=== PATIENT | male | born 1985 | race Caucasian/White ===

== ENCOUNTER 2020-12-07 15:39 | Emergency (ER) | payer MEDICAID, OTHER ==
[2020-12-07] MEDS ORDERED: Lidocaine 2% 20 ML MDV INFILT ONE (15:40)
[2020-12-07 16:34] VITALS: BP 139/89; PULSE 126
--- NOTE | 2020-12-07 17:08 | EDM.PDOC ---
ED HPI GENERAL MEDICAL PROBLEM - General Chief Complaint: Laceration Stated Complaint: L HAND LACERATION Time Seen by Provider: 12/07/20 16:00 Source of Information: Reports: Patient History Limitations: Reports: No Limitations - History of Present Illness INITIAL COMMENTS - FREE TEXT/NARRATIVE: Patient presented to the ED because of a left hand injury and doesn't know how he got hurt. He has a 0.5 cm laceration at the base of the left thumb. He is able to flex and exten his fingers without any difficulty. general Pain Score (Numeric/FACES): 8 - Related Data Allergies Allergy/AdvReac Type Severity Reaction Status Date / Time acetaminophen Allergy Hives Verified 04/06/13 19:49 Home Meds: Home Meds Cyclobenzaprine [Flexeril] 10 mg PO DAILY 04/06/13 [History] HYDROcodone/Ibuprofen [Vicoprofen 200-7.5 MG] 1 each PO Q4HR 04/06/13 [History] Neomycin/Bacitracin/Polymyxinb [Antibiotic Ointment] 3.5 gm TP Q4HR #1 oint...g. 04/06/13 [Rx] Past Medical History Respiratory History: Reports: Asthma, Bronchitis, Recurrent, Pneumonia, Recurrent Musculoskeletal History: Reports: Arthritis, Fracture Neurological History: Reports: Concussion Psychiatric History: Reports: Addiction, ADHD, Bipolar, Psych Hospitalization(s) Other Psychiatric History: out patient CD tx - Infectious Disease History Infectious Disease History: Reports: Chicken Pox - Past Surgical History Musculoskeletal Surgical History: Reports: ORIF, Shoulder Surgery ED ROS GENERAL - Review of Systems Review Of Systems: See Below Constitutional: Reports: No Symptoms HEENT: Reports: No Symptoms Respiratory: Reports: No Symptoms Cardiovascular: Reports: No Symptoms Endocrine: Reports: No Symptoms GI/Abdominal: Reports: No Symptoms : Reports: No Symptoms Musculoskeletal: Reports: No Symptoms Skin: Reports: No Symptoms, Wound Neurological: Reports: No Symptoms ED EXAM, SKIN/RASH Exam: See Below Exam Limited By: No Limitations General Appearance: Alert, No Apparent Distress Ears: Normal External Exam Nose: Normal Inspection Throat/Mouth: Normal Inspection Head: Atraumatic Neck: Normal Inspection Respiratory/Chest: No Respiratory Distress Cardiovascular: Normal Peripheral Pulses GI/Abdominal: Normal Bowel Sounds, Soft, Non-Tender Back Exam: Normal Inspection, Full Range of Motion Extremities: Normal Inspection, Normal Range of Motion Neurological: Alert, Oriented, CN II-XII Intact, Normal Cognition Psychiatric: Normal Affect, Normal Mood Skin: Warm, Intact, Normal Color, No Rash ED SKIN PROCEDURES - Laceration/Wound Repair Left Hand Appearance: Superficial Anesthetic Type: Local Local Anesthesia - Lidocaine (Xylocaine): 2% Plain Local Anesthetic Volume: 1cc Skin Prep: Chlorhexidine (Hibiciens) Saline Irrigation (cc's): 15 Exploration/Debridement/Repair: Wound Explored Closed with: Sutures Lac/Wound length In cm: 0.5 Suture Size: 3-0 Course - Vital Signs Text/Narrative:: UTD with immunization Last Recorded V/S: Last Vital Signs Temp 36.6 C 12/07/20 15:45 Pulse 126 H 12/07/20 15:45 Resp 18 12/07/20 15:45 BP 139/89 12/07/20 15:45 Pulse Ox 98 12/07/20 15:45 - Orders/Labs/Meds Orders: Active Orders 24 hr Category Date Time Status Hand Comp Min 3V Lt [CR] Stat Exams 12/07/20 16:18 Taken Departure - Departure Time of Disposition: 17:15 Disposition: Home, Self-Care 01 Condition: Good Clinical Impression: Hand injury, Laceration - Discharge Information Instructions: Laceration Care, Adult, [id number], Crush Injury of the Hand, [id number] Referrals: PCP,None [Primary Care Provider] - Additional Instructions: Please read discharge instructions on laceration Removal of suture in 10 days Take ibuprofen 800 mg with tylenol 1000 mg every 8 hours as needed for pain Follow up as needed Sepsis Event Note (ED) - Evaluation Sepsis Screening Result: No Definite Risk - Focused Exam Vital Signs: Vital Signs Temp Pulse Resp BP Pulse Ox 12/07/20 15:45 36.6 C 126 H 18 139/89 98 - My Orders Last 24 Hours: My Active Orders 12/07/20 16:18 Hand Comp Min 3V Lt [CR] Stat - Assessment/Plan Last 24 Hours: My Active Orders 12/07/20 16:18 Hand Comp Min 3V Lt [CR] Stat
--- NOTE | 2020-12-08 18:15 | CR ---
INDICATION: Left hand injury - palm area. LEFT HAND: Three views of the left hand were obtained 12/07/20 - no comparisons. Post ORIF changes are noted at the distal metaphyses of the radius and ulna. The 5th metatarsal has slight deformity likely on the basis of previous healed fracture site. A definite acute fracture or dislocation, or other definite bone or joint abnormality, was not identified. If changes persist - if occult fracture site is suspected clinically, re- examination in 10-14 days may be helpful. MTDD
== END 2020-12-07 17:15 | disposition home or self-care (01) ==
LOC: FB.ED 15:39
DX: S61.412A Laceration without foreign body of left hand, initial encounter (principal); J45.909 Unspecified asthma, uncomplicated; W26.9XXA Contact with unspecified sharp object(s), initial encounter
CPT/HCPCS: 12001; 73130-LT; 99282; 99283-25